=== PATIENT | male | born 1950 | race Caucasian/White ===

== ENCOUNTER 2017-08-03 15:39 | Emergency (ER) | payer OTHER ==
--- NOTE | 2017-08-03 16:03 | UC ---
Skin Complaint HPI - HPI Summary HPI Summary: 67 YEAR OLD MALE PRESENTS WITH COMPLAINS OF LEFT AXILLA RASH. - History of Current Complaint Chief Complaint: UCSkin Time Seen by Provider: 08/03/17 15:59 Stated Complaint: SKIN COMPLAINT Hx Obtained From: Patient Onset/Duration: Lasting Days Skin Exposure Onset/Duration: Days Ago Onset Severity: Moderate Current Severity: Moderate - Allergy/Home Medications Allergies/Adverse Reactions: Allergies Allergy/AdvReac Type Severity Reaction Status Date / Time No Known Allergies Allergy Verified 08/03/17 15:55 Review of Systems Constitutional: Negative Skin: Rash - LEFT AXILLA Eyes: Negative ENT: Negative Respiratory: Negative Cardiovascular: Negative Gastrointestinal: Negative Genitourinary: Negative Motor: Negative Neurovascular: Negative Musculoskeletal: Negative Neurological: Negative Psychological: Negative All Other Systems Reviewed And Are Negative: Yes PMH/Surg Hx/FS Hx/Imm Hx Previously Healthy: Yes - Surgical History Surgical History: Yes Surgery Procedure, Year, and Place: oral surgery - Family History Known Family History: Positive: None - Social History Alcohol Use: Occasionally Alcohol Amount: ETOH now Substance Use Type: None Smoking Status (MU): Former Smoker Household Exposure Type: Cigarettes Physical Exam Triage Information Reviewed: Yes Appearance: Well-Appearing Vital Signs: Initial Vital Signs Temp 36.4 C 08/03/17 15:51 Pulse 102 08/03/17 15:51 Resp 18 08/03/17 15:51 Pulse Ox 96 08/03/17 15:51 Eye Exam: Normal ENT Exam: Normal Dental Exam: Normal Neck exam: Normal Neck: Positive: 1 Respiratory Exam: Normal Cardiovascular Exam: Normal Abdominal Exam: Normal Musculoskeletal Exam: Normal Neurological Exam: Normal Psychological Exam: Normal Skin: Positive: rashes - LEFT AXILLA Course/Dx - Diagnoses Provider Diagnoses: LEFT AXILLA RASH Discharge - Discharge Plan Condition: Stable Disposition: HOME Prescriptions: Clotrimazole/Betamethasone* [Lotrisone Cream*] 1 applic TOPICAL BID #45 gm Erythromycin TAB* 500 mg PO QID #40 tab Patient Education Materials: Acute Rash (ED), Skin Yeast Infection (ED) Referrals: Jaime Higgins MD [Primary Care Provider] -
== END 2017-08-03 16:20 | disposition home or self-care (01) ==
LOC: UCEAST 15:39
DX: R21 Rash and other nonspecific skin eruption (principal)
CPT/HCPCS: 99212; G0463

== ENCOUNTER 2019-10-17 07:00 | Day surgery (SDC) | payer OTHER ==
[~2019-10-17 07:00] MED LIST: Acetaminophen TAB* 325 MG PO PRN
[2019-10-17] MEDS ORDERED: Midazolam* 1 MG/ML 2 ML VIAL (2 MG) ONE ×3 (07:46→08:46)
[2019-10-17] MEDS ORDERED: Tetracaine 0.5% OPTH.SOL 4 ML* 1 DROP BTL ONE (08:54)
[2019-10-17] MEDS ORDERED: Cyclopentolate 1% OPTH.SOL* 2 ML BTL ONE (08:54)
[2019-10-17] MEDS ORDERED: Neomycin/Polymy/Dex OPHTH.OIN* 3.5 GM ONE (08:54)
[2019-10-17] MEDS ORDERED: Lidocaine 1% MPF ** 5 ML VIAL ONE (08:54)
[2019-10-17] MEDS ORDERED: Ketorolac 0.5% OPHTH (NF) 0.5 % 5 ML BTL ONE (08:54)
[2019-10-17] MEDS ORDERED: Phenylephrine OPHTH SOL 2.5%* 2 ML ONE (08:54)
[2019-10-17] MEDS ORDERED: Povidone Iodine 5% OPTH* 30 ML BTL ONE (08:54)
[2019-10-17] MEDS ORDERED: Tropicamide 1% OPTH.SOL* BTL ONE (08:54)
[2019-10-17] MEDS ORDERED: acetaZOLAMIDE TAB* 250 MG ONE (08:54)
[2019-10-17 09:41] VITALS: BP 152/92
--- NOTE | 2019-10-17 12:10 | OP ---
DATE OF OPERATION: 10/17/19 [facility] DATE OF : 52 SURGEON: Adryan Pena MD ANESTHESIA: Monitored anesthesia care. PREOPERATIVE DIAGNOSIS: Cataract, right eye. POSTOPERATIVE DIAGNOSIS: Cataract, right eye. OPERATIVE PROCEDURE: Extracapsular cataract extraction of the right eye with intraocular lens implant. IMPLANT: SN6AT3 14.5 diopter lens to the right eye. COMPLICATIONS: None. DESCRIPTION OF PROCEDURE: The patient was given phenylephrine 2.5 % and cyclopentolate 1% eye drops to the operative eye in the preoperative area. The patient was sat in the upright position and corneal markings were placed to 0 and 180 degrees to assist in toric lens placement. The patient was taken to the operating room where a time-out was taken to identify the correct patient, site and side of surgery. The patient's right eye was prepped and draped in the usual sterile fashion with 5% Betadine. A second time-out was taken to verify the correct patient, side and site of surgery and correct lens implant. A lid speculum was placed to the right eye. Corneal markings were placed at 100 degrees for toric lens alignment. A 1-mm paracentesis blade was used to make a clear corneal incision in the superior temporal position. Preservative-free 1% lidocaine was injected in the anterior chamber. DisCoVisc was then injected into the anterior chamber. A 2.75 mm keratome blade was used to make a triplanar incision at the inferior temporal position. A cystotome initiated a capsulorrhexis, which was completed with Utrata forceps in a continuous and curvilinear manner. Hydrodissection of the lens was performed with BSS on a cannula. The lens could be spun in a capsular bag. The phacoemulsification handpiece was used with a [id number] technique to remove the nucleus. The I/A handpiece then removed the residual cortical lens material. Provisc was then injected to inflate the capsular bag. The ORA system was then used to confirm correct lens power. The SN6AT3 14.5 diopter lens was then injected into the capsular bag and rotated to 100 degrees. The residual Provisc was removed from the eye with the I/A handpiece. The corneal incisions were hydrated and no leaks occurred at physiologic pressure around 20 mmHg per palpation. The lid speculum was removed and drapes were removed. [facility] to the surface of the operative eye. An adhesive patch and shield was then placed on the operative eye. The patient was taken to the postoperative area in stable condition. [id number]/[facility] #: [id number] MTDD
== END 2019-10-17 09:28 | disposition home or self-care (01) ==
LOC: OREAST 07:00
PROVIDERS: ATTEND Student in an Organized Health Care Education/Training Program
DX: H25.811 Combined forms of age-related cataract, right eye (principal); Z85.810 Personal history of malignant neoplasm of tongue; K21.9 Gastro-esophageal reflux disease without esophagitis; Z87.891 Personal history of nicotine dependence; E03.9 Hypothyroidism, unspecified
CPT/HCPCS: A9270-GY; J2250; V2787

== ENCOUNTER 2019-10-24 06:33 | Day surgery (SDC) | payer OTHER ==
[2019-10-24] MEDS ORDERED: Midazolam* 1 MG/ML 2 ML VIAL (2 MG) ONE (07:14)
[2019-10-24 08:34] VITALS: BP 143/84
--- NOTE | 2019-10-24 09:17 | OP ---
DATE OF OPERATION: 10/24/19 - [facility] DATE OF : 52 SURGEON: Adryan Pena MD ANESTHESIA: Monitored anesthesia care. PREOPERATIVE DIAGNOSIS: Cataract, left eye. POSTOPERATIVE DIAGNOSIS: Cataract, left eye. OPERATIVE PROCEDURE: Extracapsular cataract extraction of the left eye with intraocular lens implant. IMPLANT: SN6AT3 17.0 diopter lens at 79 degrees to the left eye. COMPLICATIONS: None. DESCRIPTION OF PROCEDURE: The patient was given phenylephrine 2.5 % and cyclopentolate 1% eye drops to the operative eye in the preoperative area. The patient was sat in the upright position and corneal markings were placed to 0 and 180 degrees. The patient was taken to the operating room where a time-out was taken to identify the correct patient, site, and side of surgery. The patient's left eye was prepped and draped in the usual sterile fashion with 5% Betadine. A second time-out was taken to verify the correct patient, side, and site of surgery, and correct lens implant. A lid speculum was placed to the left eye. Corneal markings were placed at 79 degrees to assist toric lens placement. A 1 mm paracentesis blade was used to make a clear corneal incision in the inferotemporal position. Preservative-free 1% lidocaine was injected into the anterior chamber. DisCoVisc was then injected into the anterior chamber. A 2.75 mm keratome blade was used to make a triplanar incision at the superotemporal position. A cystotome initiated a capsulorrhexis, which was completed with Utrata forceps in a continuous and curvilinear manner. Hydrodissection of the lens was performed with BSS on a cannula. The lens could be spun in a capsular bag. The phacoemulsification handpiece was used with a [id number] technique to remove the nucleus. The I/A handpiece then removed the residual cortical lens material. Provisc was then injected to inflate the capsular bag. The ORA system was then used to confirm correct lens power and alignment. The planned SN6AT3 17.0 diopter lens was injected into the capsular bag and rotated to 79 degrees. The residual Provisc was removed from the eye with the I/A handpiece. The corneal incisions were hydrated and no leaks occurred at physiologic pressure around 20 mmHg per palpation. The lens was again confirmed to be at 79 degree meridian. The lid speculum was removed and drapes were removed. Maxitrol ointment was placed to the surface of the operative eye. An adhesive patch and shield was then placed on the operative eye. The patient was taken to the postoperative area in stable condition. [id number]/[facility] #: [id number] MTDD
[2019-10-24] MEDS ORDERED: Povidone Iodine 5% OPTH* 30 ML BTL ONE (11:03)
[2019-10-24] MEDS ORDERED: acetaZOLAMIDE TAB* 250 MG ONE (11:03)
[2019-10-24] MEDS ORDERED: Phenylephrine OPHTH SOL 2.5%* 2 ML ONE (11:03)
[2019-10-24] MEDS ORDERED: Cyclopentolate 1% OPTH.SOL* 2 ML BTL ONE (11:03)
[2019-10-24] MEDS ORDERED: Lidocaine 1% MPF ** 5 ML VIAL ONE (11:03)
[2019-10-24] MEDS ORDERED: Tetracaine 0.5% OPTH.SOL 4 ML* 1 DROP BTL ONE (11:03)
[2019-10-24] MEDS ORDERED: Ketorolac 0.5% OPHTH (NF) 0.5 % 5 ML BTL ONE (11:03)
[2019-10-24] MEDS ORDERED: Neomycin/Polymy/Dex OPHTH.OIN* 3.5 GM ONE (11:03)
[2019-10-24] MEDS ORDERED: Tropicamide 1% OPTH.SOL* BTL ONE (11:03)
== END 2019-10-24 08:50 | disposition home or self-care (01) ==
LOC: OREAST 06:33
PROVIDERS: ATTEND Student in an Organized Health Care Education/Training Program
DX: H25.811 Combined forms of age-related cataract, right eye (principal); K21.9 Gastro-esophageal reflux disease without esophagitis; Z87.891 Personal history of nicotine dependence; I10 Essential (primary) hypertension; E78.5 Hyperlipidemia, unspecified; E03.9 Hypothyroidism, unspecified; R73.01 Impaired fasting glucose
CPT/HCPCS: A9270-GY; J2250; V2787